=== PATIENT | male | born 1995 | race Caucasian/White ===

== ENCOUNTER 2017-05-05 21:11 | Emergency (ER) | payer SELFPAY ==
--- NOTE | 2017-05-05 21:20 | EDM.PDOC ---
ED HPI GENERAL MEDICAL PROBLEM - General Chief Complaint: ENT Problem Stated Complaint: SORE THROAT Time Seen by Provider: 05/05/17 21:13 Source of Information: Reports: Patient, RN, RN Notes Reviewed History Limitations: Reports: No Limitations - History of Present Illness INITIAL COMMENTS - FREE TEXT/NARRATIVE: Patient presents to the ED at [facility] complaining of a sore throat that has been present for the past couple of weeks that has progressively gotten worse. Patient states he is trying to stay well hydrated with good PO fluid intake. Patient has been taking OTC Tylenol for the pain. No other URI symptoms. No close family members or contacts with similar symptoms. Patient states at the end of the visit, he did have an exposure to STD's from his partner infidelity. Patient states he does have penile discharge without blood. He does state at times it does burn. No previous STD history. Onset: Gradual Duration: Getting Worse Throat Pain Score (Numeric/FACES): 6 - Related Data Allergies Allergy/AdvReac Type Severity Reaction Status Date / Time No Known Allergies Allergy Verified 05/05/17 21:17 Home Meds: Home Meds Amoxicillin [Amoxil] 875 mg PO Q12HR #18 tablet 05/05/17 [Rx] Doxycycline [Vibramycin] 100 mg PO Q12HR #16 cap 05/05/17 [Rx] Past Medical History - Past Health History Medical/Surgical History: Denies Medical/Surgical History Social & Family History - Family History Family Medical History: Noncontributory - Tobacco Use Smoking Status *Q: Current Every Day Smoker Tobacco Use Within Last Twelve Months: Cigarettes Smoking Cessation Information Provided To Patient: Patient Refused - Caffeine Use Caffeine Use: Reports: Energy Drinks - Alcohol Use Alcohol Use History: No Alcohol Use in Last Twelve Months: No - Recreational Drug Use Recreational Drug Use: No Drug Use in Last 12 Months: No - Living Situation & Occupation Living situation: Reports: Single Occupation: Employed ED ROS ENT - Review of Systems Review Of Systems: See Below Constitutional: Reports: Fever, Decreased Appetite. Denies: Chills, Weakness HEENT: Reports: Throat Pain, Throat Swelling. Denies: Ear Pain, Eye Discharge, Rhinitis, Sinus Problem Respiratory: Reports: Cough. Denies: Shortness of Breath Cardiovascular: Denies: Chest Pain, Palpitations GI/Abdominal: Denies: Nausea, Vomiting Skin: Reports: No Symptoms Neurological: Reports: No Symptoms ED EXAM, ENT - Physical Exam Exam: See Below Exam Limited By: No Limitations General Appearance: Alert, No Apparent Distress Eye Exam: Bilateral Eye: Normal Inspection, PERRL Ears: Normal External Exam, Normal Canal, Normal TMs Nose: Normal Inspection, Normal Mucousa Mouth/Throat: Dry Mucous Membrane, Pharyngeal Erythema, Throat Pain, Throat Swelling, Other (Pharyngeal exudates) Neck: Supple, Lymphadenopathy (L), Lymphadenopathy (R) Respiratory/Chest: No Respiratory Distress, Lungs Clear, Normal Breath Sounds Cardiovascular: Regular Rate, Rhythm Neurological: Alert, Oriented Skin: Warm, Dry, Intact, Normal Color, No Rash Course - Vital Signs Last Recorded V/S: Last Vital Signs Temp 40 C H 05/05/17 21:38 Pulse 105 H 05/05/17 21:18 Resp 18 05/05/17 21:18 BP 130/75 05/05/17 21:18 Pulse Ox 98 05/05/17 21:18 - Orders/Labs/Meds Orders: Active Orders 24 hr Category Date Time Status CHLAMYDIA/GC NUCLEIC ACID AMP [MREF] Routine Lab 05/05/17 21:56 Ordered CULTURE STREP A CONFIRMATION [RM] Stat Lab 05/05/17 21:20 Received UA W/MICROSCOPIC [URIN] Stat Lab 05/05/17 21:56 Ordered Labs: Laboratory Tests 05/05/17 Range/Units 21:20 POC Group A Strep Rpd Negative (NEGATIVE) Meds: Medications Discontinued Medications Generic Name Dose Route Start Last Admin Trade Name Betsy PRN Reason Stop Dose Admin Acetaminophen 1,000 mg 05/05/17 21:26 05/05/17 21:38 Tylenol Extra Strength PO 05/05/17 21:27 1,000 mg ONETIME ONE Administration Amoxicillin 1 packet 05/05/17 21:26 Take Home: Amoxicillin 875 Mg Tab, 2 Tab Pack PO 05/05/17 21:27 ONETIME ONE Ceftriaxone Sodium 2 gm/ 0 gm 05/05/17 21:26 05/05/17 21:42 Lidocaine HCl 4.2 ml IM 05/05/17 21:27 2 inj ONETIME ONE Administration Doxycycline Monohydrate 1 packet 05/05/17 21:38 05/05/17 21:48 Take Home: Doxycycline 100 Mg, 4 Tab Pack PO 05/05/17 21:39 1 packet ONETIME ONE Administration Departure - Departure Time of Disposition: 21:57 Disposition: Home, Self-Care 01 Condition: Good Clinical Impression: Sore throat, STD exposure, Penile discharge Fever Qualifiers: Fever type: unspecified Qualified Code(s): R50.9 - Fever, unspecified - Discharge Information Prescriptions: Amoxicillin [Amoxil] 875 mg PO Q12HR #18 tablet Doxycycline [Vibramycin] 100 mg PO Q12HR #16 cap Instructions: Pharyngitis, Safe Sex, Sexually Transmitted Disease Referrals: PCP,None [Primary Care Provider] - Forms: ED Department Discharge Additional Instructions: 1. Stay well hydrated and rest 2. May alternate Tylenol/Advil as needed for pain/fever 3. Avoid and sexual contact until all medications are taken for the entire full coarse 4. You will be mailed a letter with the test results 5. See your Primary as symptoms warrant - Problem List Review Problem List Initiated/Reviewed/Updated: Yes - My Orders Last 24 Hours: My Active Orders 05/05/17 21:20 CULTURE STREP A CONFIRMATION [RM] Stat 05/05/17 21:56 CHLAMYDIA/GC NUCLEIC ACID AMP [MREF] Routine UA W/MICROSCOPIC [URIN] Stat - Assessment/Plan Last 24 Hours: My Active Orders 05/05/17 21:20 CULTURE STREP A CONFIRMATION [RM] Stat 05/05/17 21:56 CHLAMYDIA/GC NUCLEIC ACID AMP [MREF] Routine UA W/MICROSCOPIC [URIN] Stat
[2017-05-05] MEDS ORDERED: Take Home: Amoxicillin 875 MG Tab, 2 Tab Pack PO ONE (21:26)
[2017-05-05] MEDS ORDERED: cefTRIAXone 2 GM, Lidocaine 1% 4.2 ML IM ONE ×2 (21:26)
[2017-05-05] MEDS ORDERED: Acetaminophen 500 MG Tab PO ONE (21:26)
[2017-05-05] MEDS ORDERED: Take Home: Doxycycline 100 MG Tab, 4 Tab Pack PO ONE (21:38)
== END 2017-05-05 22:07 | disposition home or self-care (01) ==
LOC: VM.ED 21:11
DX: J02.9 Acute pharyngitis, unspecified (principal); Z20.2 Contact with and (suspected) exposure to infections with a predominantly sexual mode of transmission; F17.210 Nicotine dependence, cigarettes, uncomplicated
CPT/HCPCS: 81001; 87081; 87880; 96372; 99283; A9270; J0696; 87491; 87591